=== PATIENT | male | born 1955 | race Caucasian/White ===

== ENCOUNTER → 2017-02-07 | Outpatient (CLI) | payer OTHER ==
[~2017-02-07] MED LIST: AMLO5TAB2 PO; ASPI-650 PO; CARV6.2512 PO; CEFD300C37 PO; DOXY100T PO; FLUT1DIS3 INH; FOLI-17 PO; GUAI200T3 PO; HYDR-3237 PO; LISI-170 PO; MULT1TAB60 PO; NITRO; OMNIPAQUE 350 MG/ML, 75ML BOTTLE ONE; SIMV20TA3 PO; THIA100T6 PO
== END | disposition home or self-care (01) ==
LOC: CVU 07:02
PROVIDERS: ATTEND Internal Medicine Cardiovascular Disease
DX: J44.9 Chronic obstructive pulmonary disease, unspecified (principal); E78.2 Mixed hyperlipidemia; K76.0 Fatty (change of) liver, not elsewhere classified; R91.1 Solitary pulmonary nodule
CPT/HCPCS: 71260; 93880; 93978; Q9967

== ENCOUNTER → 2017-07-05 | Outpatient (CLI) | payer OTHER ==
[~2017-07-05] MED LIST changes: -OMNIPAQUE 350 MG/ML, 75ML BOTTLE ONE
== END | disposition home or self-care (01) ==
LOC: CFH 13:43
PROVIDERS: ATTEND Internal Medicine Critical Care Medicine
DX: R91.1 Solitary pulmonary nodule (principal)
CPT/HCPCS: 71250

== ENCOUNTER 2017-09-23 20:52 | Emergency (ER) | payer OTHER ==
[~2017-09-23] VITALS: Ht 177.8 cm; Wt 96.0 kg
[2017-09-23 21:00] VITALS: BP 127/78
[2017-09-23] MEDS ORDERED: LIDOCAINE 1%, 10ML INFIL ONE (21:30)
[2017-09-23] MEDS ORDERED: DIPH,PERTUSS(ACELL),TET VAC/PF 0.5 ML IM-VACC ONE ×2 (21:30→21:34)
== END 2017-09-23 22:42 | disposition left against medical advice (07) ==
LOC: ED 22:30
DX: S01.01XA Laceration without foreign body of scalp, initial encounter (principal); S06.5X9A Traumatic subdural hemorrhage with loss of consciousness of unspecified duration, initial encounter; I10 Essential (primary) hypertension; Z87.891 Personal history of nicotine dependence; W01.198A Fall on same level from slipping, tripping and stumbling with subsequent striking against other object, initial encounter; Y93.89 Activity, other specified; Y92.098 Other place in other non-institutional residence as the place of occurrence of the external cause; Y99.8 Other external cause status
CPT/HCPCS: 12032; 70450; 90471; 90715; 96372; 99284

== ENCOUNTER 2017-10-02 06:00 | Emergency (ER) | payer OTHER ==
[~2017-10-02] VITALS: Ht 177.8 cm; Wt 100.0 kg
[2017-10-02 06:01] VITALS: BP 117/74
== END 2017-10-02 07:23 | disposition home or self-care (01) ==
LOC: ED 07:19
DX: L02.811 Cutaneous abscess of head [any part, except face] (principal); S01.01XD Laceration without foreign body of scalp, subsequent encounter; I10 Essential (primary) hypertension; Z87.891 Personal history of nicotine dependence; W18.49XD Other slipping, tripping and stumbling without falling, subsequent encounter
CPT/HCPCS: 99283

== ENCOUNTER 2017-10-04 11:57 | Emergency (ER) | payer OTHER ==
[~2017-10-04] VITALS: Ht 177.8 cm; Wt 96.1 kg
[2017-10-04 12:05] VITALS: BP 121/74
== END 2017-10-04 12:48 | disposition home or self-care (01) ==
LOC: ED 12:30
DX: S01.01XD Laceration without foreign body of scalp, subsequent encounter (principal); X58.XXXD Exposure to other specified factors, subsequent encounter
CPT/HCPCS: 99282

== ENCOUNTER 2017-10-06 06:10 | Emergency (ER) | payer OTHER ==
[~2017-10-06] VITALS: Ht 177.8 cm; Wt 94.7 kg
[2017-10-06 06:15] VITALS: BP 121/71
== END 2017-10-06 06:47 | disposition home or self-care (01) ==
LOC: ED 06:28
DX: Z48.01 Encounter for change or removal of surgical wound dressing (principal)
CPT/HCPCS: 99283

== ENCOUNTER → 2018-06-27 | Outpatient (CLI) | payer OTHER ==
[~2018-06-27] MED LIST changes: +AMLO-150 PO; -AMLO5TAB2 PO; -THIA100T6 PO; +THIA100T67 PO
== END | disposition home or self-care (01) ==
LOC: CFH 14:17
PROVIDERS: ATTEND Registered Nurse
DX: M50.10 Cervical disc disorder with radiculopathy, unspecified cervical region (principal); M48.061 Spinal stenosis, lumbar region without neurogenic claudication
CPT/HCPCS: 72052; 72114

== ENCOUNTER 2018-08-24 11:40 | Emergency (ER) | payer OTHER ==
[~2018-08-24] VITALS: Ht 177.8 cm; Wt 92.5 kg
[2018-08-24 12:52] LABS: BASOPHILS # (AUTO) 0.04 x10^3/uL (0-0.1); BASOPHILS % (AUTO) 0 % (0-1); EOSINOPHILS # (AUTO) 0.04 x10^3/uL (0-0.4); EOSINOPHILS % (AUTO) 0 % (1-7); LYMPHOCYTES # (AUTO) 2.11 x10^3/uL (1-3.4); LYMPHOCYTES % (AUTO) 18 % (22-44); MD NO; MEAN CORPUSCULAR HEMOGLOBIN 34.4 pg (27.5-34.5); MEAN CORPUSCULAR HGB CONC 33.3 g/dL (33.2-36.2); MEAN CORPUSCULAR VOLUME 103.2 fL (81-97); MEAN PLATELET VOLUME 7.7 fL (7.4-10.4); MONOCYTES # (AUTO) 0.54 x10^3/uL (0.2-0.8); MONOCYTES % (AUTO) 5 % (2-9); NEUTROPHILS # (AUTO) 8.73 x10^3/uL (1.8-6.8); NEUTROPHILS % (AUTO) 76 % (42-75); PLATELET COUNT 259 x10^3/uL (130-400); RED CELL DISTRIBUTION WIDTH 15.3 % (9.4-14.8)
[2018-08-24 13:02] LABS: ALBUMIN 3.4 g/dL (3.4-5.0); ANION GAP 5 mmol/L (5-15); CALCIUM 8.8 mg/dL (8.5-10.1); CHLORIDE 99 mmol/L (98-107)
[2018-08-24 13:07] LABS: CREATININE 0.57 mg/dL (0.7-1.3)
--- NOTE | 2018-08-24 13:16 | NUR ---
task RN note: pt presents to ED with c/o bilateral pedal edema present for last several days. pt denies chest pain, denies sob, denies leg/foot pain. no erythema noted. bilateral lower leg and pedal edema noted, equal bilateral. pt a&o, resps even and unlabored. bp and spo2 monitors in place. call light in reach. pt educated to provide urine sample, urinal at bedside. edt at bedside to perform EKG. awaiting US as well at this time. pt updated with poc. ba.
[2018-08-24 13:24] LABS: ALBUMIN 3.3 g/dL (3.4-5.0); BILIRUBIN, DIRECT 0.2 mg/dL (0.1-0.2)
[2018-08-24 13:25] VITALS: BP 108/68
[2018-08-24 13:26] LABS: BILIRUBIN,TOTAL 0.6 mg/dL (0.2-1.0); TOTAL PROTEIN 6.8 g/dL (6.4-8.2)
--- NOTE | 2018-08-24 13:26 | NUR ---
report given to primary RN Paz.
--- NOTE | 2018-08-24 13:30 | NUR ---
UOB TO BATHROOM WITHOUT ASSISTANCE. FERRY PILOT AT BEDSIDE PREPARING TO DOING VASCULAR STUDY
[2018-08-24 14:26] LABS: CULTURE INDICATED? YES; MICROSCOPIC INDICATED
--- NOTE | 2018-08-24 14:37 | NUR ---
PT REQUESTED TO SIT IN CHAIR. FRIEND IN ROOM VISITING
[2018-08-24 14:42] LABS: BILIRUBIN,INDIRECT 0.4 mg/dL (0.0-2.0)
== END 2018-08-24 15:16 | disposition home or self-care (01) ==
LOC: ED 12:52
DX: N30.00 Acute cystitis without hematuria (principal); R60.0 Localized edema; I10 Essential (primary) hypertension; I25.2 Old myocardial infarction; Z87.891 Personal history of nicotine dependence
CPT/HCPCS: 36415; 71045; 80048; 80076; 81001; 82040; 83880; 85025; 87086; 93005; 93970; 99284

== ENCOUNTER → 2018-09-03 | Outpatient (CLI) | payer OTHER ==
[~2018-09-03] MED LIST changes: +ASPI-496 PO; +LIDOCAINE 2%, 20ML ONE; +potassium PO
[2018-09-03 09:36] LABS: MEAN CORPUSCULAR HEMOGLOBIN 33.6 pg (27.5-34.5); MEAN CORPUSCULAR HGB CONC 32.5 g/dL (33.2-36.2); MEAN CORPUSCULAR VOLUME 103.5 fL (81-97); PLATELET COUNT 256 x10^3/uL (130-400); RED CELL DISTRIBUTION WIDTH 15.7 % (9.4-14.8)
[2018-09-03 09:44] LABS: INTERNATIONAL NORMALIZED RATIO 1.02 (0.93-1.1); PROTHROMBIN TIME 10.7 Seconds (9.6-11.5)
[2018-09-03 09:45] LABS: ALANINE AMINOTRANSFERASE 29 U/L (12-78); ALBUMIN 3.2 g/dL (3.4-5.0); ANION GAP 8 mmol/L (5-15); CHLORIDE 88 mmol/L (98-107)
[2018-09-03 09:48] LABS: ALKALINE PHOSPHATASE 91 U/L (45-117); BILIRUBIN,TOTAL 0.6 mg/dL (0.2-1.0); CREATININE 0.58 mg/dL (0.7-1.3); TOTAL PROTEIN 6.6 g/dL (6.4-8.2)
[2018-09-03 10:05] LABS: BASOPHILS # (AUTO) 0.12 x10^3/uL (0-0.1); BASOPHILS % (AUTO) 1 % (0-1); EOSINOPHILS # (AUTO) 0.08 x10^3/uL (0-0.4); EOSINOPHILS % (AUTO) 1 % (1-7); LYMPHOCYTES # (AUTO) 2.48 x10^3/uL (1-3.4); LYMPHOCYTES % (AUTO) 19 % (22-44); MD SCAN; MONOCYTES % (AUTO) 7 % (2-9); NEUTROPHILS # (AUTO) 9.62 x10^3/uL (1.8-6.8); NEUTROPHILS % (AUTO) 73 % (42-75)
== END | disposition home or self-care (01) ==
LOC: STAR 08:20
PROVIDERS: ATTEND Neurological Surgery
DX: Z01.818 Encounter for other preprocedural examination (principal); M54.17 Radiculopathy, lumbosacral region
CPT/HCPCS: 36415; 80053; 85025; 85610; 85730; 93005

== ENCOUNTER → 2018-09-04 | Outpatient (CLI) | payer OTHER ==
[~2018-09-04] MED LIST changes: -LIDOCAINE 2%, 20ML ONE; +UMEC1DIS INH
[2018-09-04 12:43] LABS: BASOPHILS # (AUTO) 0.04 x10^3/uL (0-0.1); BASOPHILS % (AUTO) 0 % (0-1); EOSINOPHILS # (AUTO) 0.06 x10^3/uL (0-0.4); EOSINOPHILS % (AUTO) 1 % (1-7); LYMPHOCYTES % (AUTO) 17 % (22-44); MD NO; MEAN CORPUSCULAR HEMOGLOBIN 34.6 pg (27.5-34.5); MEAN CORPUSCULAR HGB CONC 33.2 g/dL (33.2-36.2); MEAN CORPUSCULAR VOLUME 104.4 fL (81-97); MEAN PLATELET VOLUME 6.9 fL (7.4-10.4); MONOCYTES # (AUTO) 0.55 x10^3/uL (0.2-0.8); MONOCYTES % (AUTO) 5 % (2-9); NEUTROPHILS # (AUTO) 9.01 x10^3/uL (1.8-6.8); NEUTROPHILS % (AUTO) 77 % (42-75); PLATELET COUNT 275 x10^3/uL (130-400); RED BLOOD COUNT 3.97 x10^6/uL (4.38-5.82); RED CELL DISTRIBUTION WIDTH 15.6 % (9.4-14.8)
[2018-09-04 12:54] LABS: ANION GAP 10 mmol/L (5-15); CALCIUM 8.7 mg/dL (8.5-10.1); CHLORIDE 91 mmol/L (98-107); CREATININE 0.63 mg/dL (0.7-1.3)
== END | disposition home or self-care (01) ==
LOC: LAB 12:29
PROVIDERS: ATTEND Neurological Surgery
DX: M54.17 Radiculopathy, lumbosacral region (principal)
CPT/HCPCS: 36415; 80048; 85025

== ENCOUNTER 2018-09-09 08:00 | Inpatient (IN) | payer OTHER ==
[2018-09-03 12:49] VITALS: BP 119/78
[~2018-09-09] VITALS: Ht 177.8 cm; Wt 92.4 kg
[~2018-09-09 08:00] MED LIST changes: -UMEC1DIS INH
[2018-09-09] MEDS ORDERED: ACETAMINOPHEN 500 MG TABLET PO ONE (10:00)
[2018-09-09] MEDS ORDERED: GABAPENTIN 300 MG CAPSULE PO ONE (10:00)
[2018-09-09] MEDS ORDERED: LACTATED RINGERS 1,000 ML IV SCH (10:00)
[2018-09-09] MEDS ORDERED: UMEC1DIS INH (10:27)
[2018-09-09 10:57] LABS: ANION GAP 9 mmol/L (5-15); CALCIUM 8.7 mg/dL (8.5-10.1); CHLORIDE 100 mmol/L (98-107); CREATININE 0.43 mg/dL (0.7-1.3)
[2018-09-09] MEDS ORDERED: HALOPERIDOL 5 MG/ML IV PRN (11:30)
[2018-09-09] MEDS ORDERED: DIPHENHYDRAMINE 50 MG/ML, 1ML IVPush PRN (11:30)
[2018-09-09] MEDS ORDERED: METOPROLOL 1 MG/ML, 5ML IV PRN (11:30)
[2018-09-09] MEDS ORDERED: PROMETHAZINE 25 MG/ML, 1ML IV PRN (11:30)
[2018-09-09] MEDS ORDERED: PROCHLORPERAZINE 5 MG/ML, 2ML IV PRN (11:30)
[2018-09-09] MEDS ORDERED: hydrALAzine 20 MG/ML, 1ML IV PRN (11:30)
[2018-09-09] MEDS ORDERED: LABETALOL 5 MG/ML SYRINGE IV PRN (11:30)
[2018-09-09] MEDS ORDERED: OXYcodone 5 MG/5 ML ORAL.SOL UDC PO PRN (11:30)
[2018-09-09] MEDS ORDERED: MEPERIDINE/PF 25MG/0.5ML IVPush PRN (11:30)
[2018-09-09] MEDS ORDERED: BUPIVACAINE/PF-EPI 0.5% 1:200K ONE (13:16)
[2018-09-09] MEDS ORDERED: BACITRACIN 50,000 UNIT ONE (13:16)
[2018-09-09] MEDS ORDERED: THROMBIN 5,000 UNIT VIAL TP ONE (13:16)
[2018-09-09] MEDS ORDERED: MIDAZOLAM 1 MG/ML, 2ML ONE (13:22)
[2018-09-09] MEDS ORDERED: FENTANYL PF 250 MCG/5ML ONE (13:22)
[2018-09-09] MEDS ORDERED: GLYCOPYRROLATE 0.2MG/1ML, 5ML ONE (13:39)
[2018-09-09] MEDS ORDERED: PROPOFOL 10 MG/ML, 20ML ONE (13:39)
[2018-09-09] MEDS ORDERED: DEXAMETHASONE 4 MG/ML, 1ML ONE (13:39)
[2018-09-09] MEDS ORDERED: NEOSTIGMINE 1 MG/ML, 10ML ONE (13:39)
[2018-09-09] MEDS ORDERED: SUCCINYLCHOLINE 20 MG/ML, 10ML ONE (13:39)
[2018-09-09] MEDS ORDERED: ROCURONIUM 10 MG/ML,10ML ONE (13:39)
[2018-09-09] MEDS ORDERED: ONDANSETRON 2MG/ML, 2ML ONE (13:39)
[2018-09-09] MEDS ORDERED: CEFAZOLIN 1,000 MG ONE (13:39)
[2018-09-09] MEDS ORDERED: VANCOMYCIN 1,000 MG ONE (16:11)
[2018-09-09] MEDS ORDERED: FENTANYL PF 100 MCG/2ML ONE (16:52)
[2018-09-09] MEDS ORDERED: OXYcodone 5 MG/5 ML ORAL.SOL UDC ONE (16:52)
[2018-09-09] MEDS ORDERED: HYDROmorphone 2 MG/ML, 1ML ONE (16:52)
[2018-09-09] MEDS ORDERED: ALBUTEROL/IPRATROPIUM 2.5MG/0.5MG, 3 ML ONE (16:55)
[2018-09-09] MEDS: FENTANYL PF 100 MCG/2ML IV PRN ×2 (16:57→17:03)
[2018-09-09] MEDS ORDERED: SENNA/DOCUSATE TABLET PO PRN (17:00)
[2018-09-09] MEDS ORDERED: ALBUTEROL/IPRATROPIUM 2.5MG/0.5MG, 3 ML NPPB PRN (17:00)
[2018-09-09] MEDS ORDERED: LABETALOL 5MG/ML, 20ML IVPush PRN (17:00)
[2018-09-09] MEDS ORDERED: BISACODYL 10 MG SUPP PR PRN (17:00)
[2018-09-09] MEDS ORDERED: CYCLOBENZAPRINE 10 MG TABLET PO PRN (17:00)
[2018-09-09] MEDS ORDERED: HYDROcodone/APAP 5/325 TABLET PO PRN (17:00)
[2018-09-09] MEDS ORDERED: MAGNESIUM HYDROXIDE 8%, 30ML UDC PO PRN (17:00)
[2018-09-09] MEDS ORDERED: OXYcodone/APAP 5/325MG TABLET PO PRN (17:00)
[2018-09-09] MEDS ORDERED: ONDANSETRON 2MG/ML, 2ML IVPush PRN (17:00)
[2018-09-09] MEDS ORDERED: PHARMACY MAY ADJ FOR RENAL FX MC PRN (17:00)
[2018-09-09] MEDS ORDERED: DIPHENHYDRAMINE 50 MG CAPSULE PO PRN (17:00)
[2018-09-09] MEDS: HYDROmorphone 2 MG/ML, 1ML IVPush PRN ×3 (17:13→17:43)
[2018-09-09 18:50] VITALS: BP 125/66
[2018-09-09] MEDS: SIMVASTATIN 20 MG TABLET PO SCH (20:17)
[2018-09-09] MEDS: CARVEDILOL 6.25 MG TABLET PO SCH (20:17)
[2018-09-09] MEDS: SODIUM CHLORIDE FLUSH 10ML SYR IVF SCH (20:18)
[2018-09-09] MEDS: NS + 20MEQ KCL 1,000 ML IV SCH (20:18)
[2018-09-09] MEDS ORDERED: POTASSIUM CHLORIDE 10 MEQ TABLET.ER PO SCH (21:00)
[2018-09-09] MEDS: CEFAZOLIN PMX 1GM/50ML 50 ML IVPB SCH (22:08)
[2018-09-10 00:02] VITALS: BP 120/72
[2018-09-10 04:11] VITALS: BP 103/63
[2018-09-10 05:41] LABS: ANION GAP 6 mmol/L (5-15); BASOPHILS # (AUTO) 0.01 x10^3/uL (0-0.1); BASOPHILS % (AUTO) 0 % (0-1); CALCIUM 7.9 mg/dL (8.5-10.1); CHLORIDE 98 mmol/L (98-107); EOSINOPHILS % (AUTO) 0 % (1-7); LYMPHOCYTES # (AUTO) 1.25 x10^3/uL (1-3.4); LYMPHOCYTES % (AUTO) 9 % (22-44); MD NO; MEAN CORPUSCULAR HGB CONC 33.4 g/dL (33.2-36.2); MEAN CORPUSCULAR VOLUME 104.9 fL (81-97); MEAN PLATELET VOLUME 7.4 fL (7.4-10.4); MONOCYTES # (AUTO) 0.44 x10^3/uL (0.2-0.8); MONOCYTES % (AUTO) 3 % (2-9); NEUTROPHILS # (AUTO) 13.01 x10^3/uL (1.8-6.8); NEUTROPHILS % (AUTO) 88 % (42-75); PLATELET COUNT 263 x10^3/uL (130-400); RED BLOOD COUNT 3.27 x10^6/uL (4.38-5.82); RED CELL DISTRIBUTION WIDTH 15.6 % (9.4-14.8)
[2018-09-10 05:42] LABS: CREATININE 0.41 mg/dL (0.7-1.3)
[2018-09-10] MEDS: CEFAZOLIN PMX 1GM/50ML 50 ML IVPB SCH (06:12)
[2018-09-10] MEDS: NS + 20MEQ KCL 1,000 ML IV SCH ×3 (06:41→20:27)
[2018-09-10] MEDS ORDERED: MORPHINE SULFATE 4 MG/ML, 1ML IV PRN (09:00)
[2018-09-10 09:03] VITALS: BP_SYST 110; BP_SYST 97; BP_DIAS 53; BP_DIAS 62
[2018-09-10] MEDS: CARVEDILOL 6.25 MG TABLET PO SCH ×2 (09:07→20:24)
[2018-09-10] MEDS: LISINOPRIL 20 MG TABLET PO SCH (09:07)
[2018-09-10] MEDS: TEMPLATE NON-FORMULARY MED. (Umeclidinium Brm/Vilanterol Tr (Anoro Ellipta 62.5-25 Mcg Inh INH SCH (09:08)
[2018-09-10] MEDS: SODIUM CHLORIDE FLUSH 10ML SYR IVF SCH ×2 (09:08→20:24)
[2018-09-10] MEDS: NICOTINE 21 MG/24 HR PATCH.TD24 HOMETD SCH (09:11)
[2018-09-10] MEDS: POTASSIUM CHLORIDE 10 MEQ TABLET.ER HOMEMEDPO SCH ×2 (09:11→20:24)
[2018-09-10] MEDS ORDERED: IPRATROPIUM NASAL 0.03%, 30ML HOMEMISC PRN (10:30)
[2018-09-10] MEDS: FLUOXETINE HCL 20 MG CAPSULE PO SCH (10:49)
[2018-09-10] MEDS: HYDROcodone/APAP 10/325 MG TABLET PO PRN ×2 (10:49→19:13)
[2018-09-10 13:11] VITALS: BP 110/65
[2018-09-10] MEDS ORDERED: MONT10TA6 PO (18:06)
[2018-09-10] MEDS ORDERED: FLUO20CA19 PO (18:06)
[2018-09-10 18:30] VITALS: BP 101/59
[2018-09-10] MEDS: SIMVASTATIN 20 MG TABLET PO SCH (20:24)
[2018-09-10] MEDS ORDERED: MONTELUKAST 10 MG TABLET PO SCH (21:00)
[2018-09-11] MEDS: HYDROcodone/APAP 10/325 MG TABLET PO PRN ×2 (01:27→09:05)
[2018-09-11 01:38] VITALS: BP 113/64
[2018-09-11 05:39] LABS: BASOPHILS # (AUTO) 0.14 x10^3/uL (0-0.1); BASOPHILS % (AUTO) 1 % (0-1); EOSINOPHILS # (AUTO) 0.01 x10^3/uL (0-0.4); EOSINOPHILS % (AUTO) 0 % (1-7); LYMPHOCYTES % (AUTO) 14 % (22-44); MD NO; MEAN CORPUSCULAR HEMOGLOBIN 34.9 pg (27.5-34.5); MEAN CORPUSCULAR HGB CONC 33.1 g/dL (33.2-36.2); MEAN CORPUSCULAR VOLUME 105.2 fL (81-97); MEAN PLATELET VOLUME 7.4 fL (7.4-10.4); MONOCYTES # (AUTO) 0.86 x10^3/uL (0.2-0.8); MONOCYTES % (AUTO) 7 % (2-9); NEUTROPHILS # (AUTO) 10.33 x10^3/uL (1.8-6.8); NEUTROPHILS % (AUTO) 78 % (42-75); PLATELET COUNT 254 x10^3/uL (130-400); RED BLOOD COUNT 3.18 x10^6/uL (4.38-5.82); RED CELL DISTRIBUTION WIDTH 15.9 % (9.4-14.8)
[2018-09-11 05:40] VITALS: BP 125/43
[2018-09-11 05:54] LABS: ANION GAP 6 mmol/L (5-15); CALCIUM 7.8 mg/dL (8.5-10.1); CHLORIDE 97 mmol/L (98-107); CREATININE 0.38 mg/dL (0.7-1.3)
[2018-09-11] MEDS: NS + 20MEQ KCL 1,000 ML IV SCH (08:52)
[2018-09-11] MEDS: NICOTINE 21 MG/24 HR PATCH.TD24 HOMETD SCH (09:03)
[2018-09-11] MEDS: FLUOXETINE HCL 20 MG CAPSULE PO SCH (09:05)
[2018-09-11] MEDS: POTASSIUM CHLORIDE 10 MEQ TABLET.ER HOMEMEDPO SCH ×2 (09:05→09:12)
[2018-09-11] MEDS: TEMPLATE NON-FORMULARY MED. (Umeclidinium Brm/Vilanterol Tr (Anoro Ellipta 62.5-25 Mcg Inh INH SCH (09:06)
[2018-09-11] MEDS: SODIUM CHLORIDE FLUSH 10ML SYR IVF SCH (09:06)
[2018-09-11 09:07] VITALS: BP 125/77
[2018-09-11] MEDS: CARVEDILOL 6.25 MG TABLET PO SCH (09:07)
[2018-09-11] MEDS: LISINOPRIL 20 MG TABLET PO SCH (09:07)
[2018-09-11 12:44] VITALS: BP 98/62
[2018-09-11 15:07] VITALS: BP 124/79
== END 2018-09-11 15:50 | disposition home or self-care (01) | DRG 454 ==
LOC: EDSTATUS 08:30 → ORIP 09:48 → 4NOR 18:40 → DCLOUNGE 09-11 15:40
PROVIDERS: ADMIT Neurological Surgery; ATTEND Neurological Surgery
PROC: 0SG3071 Fusion of Lumbosacral Joint with Autologous Tissue Substitute, Posterior Approach, Posterior Column, Open Approach (ICD-10-PCS; 2018-09-09)
PROC: 0SB40ZZ Excision of Lumbosacral Disc, Open Approach (ICD-10-PCS; 2018-09-09)
PROC: 00NY0ZZ Release Lumbar Spinal Cord, Open Approach (ICD-10-PCS; 2018-09-09)
PROC: 01NB0ZZ Release Lumbar Nerve, Open Approach (ICD-10-PCS; 2018-09-09)
PROC: 01NR0ZZ Release Sacral Nerve, Open Approach (ICD-10-PCS; 2018-09-09)
PROC: 0SG30AJ Fusion of Lumbosacral Joint with Interbody Fusion Device, Posterior Approach, Anterior Column, Open Approach (ICD-10-PCS; principal; 2018-09-09 13:00)
DX: M48.07 Spinal stenosis, lumbosacral region (principal); E87.1 Hypo-osmolality and hyponatremia; J44.9 Chronic obstructive pulmonary disease, unspecified; E78.00 Pure hypercholesterolemia, unspecified; I10 Essential (primary) hypertension; M47.27 Other spondylosis with radiculopathy, lumbosacral region; M47.26 Other spondylosis with radiculopathy, lumbar region; M43.16 Spondylolisthesis, lumbar region; M43.17 Spondylolisthesis, lumbosacral region; I25.10 Atherosclerotic heart disease of native coronary artery without angina pectoris; Z95.5 Presence of coronary angioplasty implant and graft; I25.2 Old myocardial infarction; Z79.01 Long term (current) use of anticoagulants; Z82.49 Family history of ischemic heart disease and other diseases of the circulatory system
CPT/HCPCS: 36415; 72100; J7620; 80048; 85025; 86850; 86900; 94640; C1713; C1776; G0378; J0690; J1100; J1170; J2250; J2270; J2405; J2704; J2710; J3010; J3370; J3480; C1762; J0330; J7120

== ENCOUNTER → 2019-09-16 | Outpatient (CLI) | payer OTHER ==
[~2019-09-16] MED LIST changes: +FLUO20CA19 PO; -GUAI200T3 PO; +GUAI200T37 PO; +MONT10TA6 PO; +SIMV20TA19 PO; -SIMV20TA3 PO; +UMEC1DIS INH
== END | disposition home or self-care (01) ==
LOC: CVU 14:20
PROVIDERS: ATTEND Internal Medicine Cardiovascular Disease
DX: I36.1 Nonrheumatic tricuspid (valve) insufficiency (principal); I25.10 Atherosclerotic heart disease of native coronary artery without angina pectoris; I10 Essential (primary) hypertension; J44.9 Chronic obstructive pulmonary disease, unspecified; I25.2 Old myocardial infarction; Z85.46 Personal history of malignant neoplasm of prostate; Z87.891 Personal history of nicotine dependence
CPT/HCPCS: C8929; Q9957

== ENCOUNTER 2020-02-22 11:36 | Inpatient (IN) | payer OTHER ==
[~2020-02-22] VITALS: Ht 177.8 cm; Wt 82.1 kg
[~2020-02-22 11:36] MED LIST changes: -CARV6.2512 PO; +MULT-449 PO; -MULT1TAB60 PO
[2020-02-22] MEDS ORDERED: SODIUM CHLORIDE FLUSH 10ML SYR IVF ONE (12:00)
--- NOTE | 2020-02-22 12:01 | NUR ---
PT CAME IN BY AMBULANCE C./O WEAKNESS THAT HAS PERSISTED FOR APPROX A MONTH. PT ALSO STATES HE IS EXPERIENCING DIZZINESS THAT IS PRESENT WITHOUT MOVEMENT. PT DENIES N/V, CHEST PAIN, OR HEADACHE. PTS DAUGHTER ENCOURAGED HIM TO GET CHECKED OUT. IV ESTABLISHED BY EMS, 20 GA RIGHT HAND.
[2020-02-22 12:37] LABS: BASOPHILS % (AUTO) 1 % (0-1); EOSINOPHILS % (AUTO) 1 % (1-7); LYMPHOCYTES % (AUTO) 13 % (22-44); MEAN CORPUSCULAR HEMOGLOBIN 36.6 pg (27.5-34.5); MEAN CORPUSCULAR HGB CONC 34.5 g/dL (33.2-36.2); MEAN PLATELET VOLUME 7.8 fL (7.4-10.4); MONOCYTES % (AUTO) 8 % (2-9); NEUTROPHILS % (AUTO) 78 % (42-75); PLATELET COUNT 220 x10^3/uL (130-400); RED BLOOD COUNT 2.27 x10^6/uL (4.38-5.82); RED CELL DISTRIBUTION WIDTH 14.3 % (9.4-14.8)
[2020-02-22 12:40] LABS: MD NO
[2020-02-22 12:47] LABS: ALANINE AMINOTRANSFERASE 18 U/L (12-78); ALBUMIN 2.2 g/dL (3.4-5.0); ANION GAP 8 mmol/L (5-15); CALCIUM 7.5 mg/dL (8.5-10.1); CHLORIDE 89 mmol/L (98-107)
[2020-02-22 12:52] LABS: ALKALINE PHOSPHATASE 213 U/L (45-117); BILIRUBIN,TOTAL 0.9 mg/dL (0.2-1.0); TOTAL PROTEIN 5.1 g/dL (6.4-8.2); TROPONIN I < 0.015 ng/mL (0.000-0.045)
--- NOTE | 2020-02-22 14:11 | NUR ---
PT LYING ON RIGHT SIDE IN POSITION OF COMFORT. ATTEMPTED TO GIVE URINE SAMPLE BUT UNABLE TO. AWAITING DOXY FROM PHARMACY. PROVIDED SIPS OF APPLE JUICE. DAUGHTER AT BEDSIDE
[2020-02-22] MEDS ORDERED: TRELEGY (14:16)
[2020-02-22] MEDS ORDERED: ONDANSETRON 2MG/ML, 2ML IVPush PRN (15:00)
[2020-02-22] MEDS ORDERED: ACETAMINOPHEN 325 MG TABLET PO PRN (15:00)
[2020-02-22] MEDS ORDERED: hydrALAzine 20 MG/ML, 1ML IVPush PRN (15:00)
[2020-02-22] MEDS ORDERED: CEFTRIAXONE PMX 1GM/50ML 50 ML IV ONE (15:00)
[2020-02-22] MEDS ORDERED: DOXYCYCLINE 100 MG in DEXTROSE 5% 250 ML IV SCH (15:00)
[2020-02-22] MEDS: CEFTRIAXONE PMX 2GM/50ML 50 ML IVPB SCH (15:00)
[2020-02-22] MEDS ORDERED: DOCUSATE 100 MG CAPSULE PO PRN (15:00)
--- NOTE | 2020-02-22 15:02 | NUR ---
[facility] [phone]
[2020-02-22] MEDS ORDERED: CEFTRIAXONE PMX 1GM/50ML 50 ML ONE (15:05)
[2020-02-22 15:16] LABS: HCT (SEDRATE) 24.1 % (39.2-51.8)
[2020-02-22 15:18] LABS: INTERNATIONAL NORMALIZED RATIO 1.28 (0.93-1.1); PROTHROMBIN TIME 13.5 Seconds (9.6-11.5)
--- NOTE | 2020-02-22 15:19 | NUR ---
task RN note: MD Yoder called on behalf of primary RN MD Krisitn notified sodium level is 126, pt has not received any saline solution in ED to correct. declined to place IV fluid orders as she is concerned with pt's elevated BNP level. no orders received. HEATH Foster notified.
[2020-02-22] MEDS ORDERED: AMLO-211 PO (15:42)
[2020-02-22] MEDS ORDERED: CARV3.122 PO (15:42)
[2020-02-22] MEDS ORDERED: ASPI-515 PO (15:42)
[2020-02-22] MEDS ORDERED: vitamin d3 (15:44)
[2020-02-22] MEDS ORDERED: SODIUM CHLORIDE 0.9% 500 ML IV STA (16:19)
--- NOTE | 2020-02-22 16:20 | NUR ---
DR PHOENIX MADE AWARE OF 85 SYSTOLIC BP AND ORDER RECEIVED FOR 500 ML NS IV BOLUS. ADDITIONALLY MADE AWARE THAT VIBRAMYCIN THAT HAD BEEN ORDERED BY ER MD DID NOT GET STARTED BEFORE IT WAS CANCELLED OFF JUN. DR PHOENIX STATES SHE DOES NOT WANT THE PT TO RECEIVE THAT MEDICINE BUT ROCEPHINE AND AZITHRO INSTEAD.
[2020-02-22] MEDS ORDERED: AZITHROMYCIN 250 MG TABLET ONE (16:30)
[2020-02-22 16:34] LABS: MICROSCOPIC INDICATED
--- NOTE | 2020-02-22 17:18 | NUR ---
PT SITTING ON THE SIDE OF THE BED EATING DINNER. NO COMPLAINTS OF DIZZINESS AT THIS TIMEM, JUST STUFFY NOSE.
[2020-02-22] MEDS ORDERED: SODIUM CHLORIDE 0.9% 500 ML IV ONE (17:30)
--- NOTE | 2020-02-22 18:20 | NUR ---
RT PLACED PT ON HUMIDIFIED OXYGEN. ADDITIONALLY PT PLACED ON HOSPITAL BED. SPOKE WITH SUPPLY CHAIN ASSOCIATE JULIO CESAR ABOUT 85 SYSTOLIC BP AND ORDER RECEIVED FOR 250 ML BOLUS AND TO MONITOR.
--- NOTE | 2020-02-22 18:53 | NUR ---
REPORT TO KENNY JOE. AWARE OF RECENT IV BOLUS 250 ML WITH DISCUSSION WITH MODE SALAS THAT LONG ASYMPTOMATIC WITH BP AND MAP OF 60, TO CONTINUE TO MONITOR WITHOUT ADDITIONAL FLUIDS. 89/58 BP AT THIS TIME.
[2020-02-22 19:44] VITALS: BP_SYST 65; BP_SYST 80; BP_SYST 83; BP_DIAS 45; BP_DIAS 47; BP_DIAS 56
[2020-02-22] MEDS: CARVEDILOL 6.25 MG TABLET PO SCH (20:08)
[2020-02-22] MEDS ORDERED: SODIUM CHLORIDE 0.9%, 500ML IVBOLUS ONE (20:30)
[2020-02-22] MEDS: MONTELUKAST 10 MG TABLET PO SCH (21:05)
[2020-02-22] MEDS: SIMVASTATIN 20 MG TABLET PO SCH (21:06)
[2020-02-22] MEDS: FAMOTIDINE 20 MG TABLET PO SCH (21:06)
[2020-02-22 21:29] VITALS: BP 91/52
[2020-02-22 23:30] VITALS: BP 90/56
[2020-02-22] MEDS ORDERED: CARV6.2512 PO (23:32)
[2020-02-23 01:24] LABS: BASOPHILS % (AUTO) 1 % (0-1); EOSINOPHILS % (AUTO) 1 % (1-7); LYMPHOCYTES % (AUTO) 17 % (22-44); MEAN CORPUSCULAR HEMOGLOBIN 37.2 pg (27.5-34.5); MEAN CORPUSCULAR HGB CONC 34.9 g/dL (33.2-36.2); MEAN PLATELET VOLUME 6.9 fL (7.4-10.4); MONOCYTES % (AUTO) 9 % (2-9); NEUTROPHILS % (AUTO) 73 % (42-75); PLATELET COUNT 180 x10^3/uL (130-400); RED BLOOD COUNT 1.98 x10^6/uL (4.38-5.82); RED CELL DISTRIBUTION WIDTH 14.4 % (9.4-14.8)
[2020-02-23 01:28] LABS: MD NO
[2020-02-23 01:34] LABS: ALANINE AMINOTRANSFERASE 15 U/L (12-78); ALBUMIN 1.9 g/dL (3.4-5.0); ANION GAP 4 mmol/L (5-15); CHLORIDE 92 mmol/L (98-107); CREATININE 0.21 mg/dL (0.7-1.3)
[2020-02-23 01:37] LABS: ALKALINE PHOSPHATASE 184 U/L (45-117); BILIRUBIN,TOTAL 0.7 mg/dL (0.2-1.0); CHOL/HDL RATIO 1.8; CHOLESTEROL, TOTAL 64 mg/dL (140-239); HDL CHOL % 55 % (26-37); HDL CHOLESTEROL (DIRECT) 35 mg/dL (40-60); LDL CHOLESTEROL,CALCULATED 18 mg/dL (54-169); LDL/HDL RATIO 0.5 (0.5-3.0); TOTAL PROTEIN 4.5 g/dL (6.4-8.2); TRIGLYCERIDES 53 mg/dL (50-200); VLDL CHOLESTEROL 11 mg/dL (0-25)
[2020-02-23] MEDS ORDERED: MAGNESIUM SULFATE PMX 2GM/50ML 50 ML IV ONE (02:00)
[2020-02-23] MEDS ORDERED: POTASSIUM CHLORIDE 20 MEQ TAB.ER.PRT PO ONE ×2 (02:00→13:00)
[2020-02-23] MEDS: CARVEDILOL 6.25 MG TABLET PO SCH (03:08)
[2020-02-23 05:13] VITALS: BP 78/41
[2020-02-23] MEDS ORDERED: MIDODRINE 5 MG TABLET PO ONE (05:30)
[2020-02-23 06:56] VITALS: BP 92/56
[2020-02-23 07:24] LABS: MICROSCOPIC INDICATED
[2020-02-23] MEDS ORDERED: SODIUM CHLORIDE 0.9% 1,000 ML IV SCH (07:30)
[2020-02-23] MEDS ORDERED: LISINOPRIL 20 MG TABLET PO SCH (09:00)
[2020-02-23] MEDS: AZITHROMYCIN 500 MG TABLET PO SCH (09:33)
[2020-02-23] MEDS: FLUOXETINE HCL 20 MG CAPSULE PO SCH (09:33)
[2020-02-23] MEDS: FAMOTIDINE 20 MG TABLET PO SCH ×2 (09:33→20:43)
[2020-02-23] MEDS ORDERED: OMNIPAQUE 350 MG/ML, 75ML BOTTLE ONE (11:45)
[2020-02-23 12:22] VITALS: BP_SYST 74; BP_SYST 89; BP_DIAS 37; BP_DIAS 55
[2020-02-23] MEDS ORDERED: MIDODRINE 5 MG TABLET PO SCH (13:00)
[2020-02-23 13:56] VITALS: BP 82/45
[2020-02-23] MEDS ORDERED: LORazepam 2 MG/ML, 1ML IV PRN ×5 (17:00)
[2020-02-23] MEDS: CEFTRIAXONE PMX 2GM/50ML 50 ML IVPB SCH (17:26)
[2020-02-23 19:09] VITALS: BP 86/48
[2020-02-23] MEDS: SIMVASTATIN 20 MG TABLET PO SCH (20:42)
[2020-02-23] MEDS: MIDODRINE 5 MG TABLET PO SCH (20:43)
[2020-02-23] MEDS: MONTELUKAST 10 MG TABLET PO SCH (20:43)
[2020-02-24 01:43] VITALS: BP 88/52
[2020-02-24] MEDS: ASPIRIN 81 MG TABLET EC PO SCH (06:27)
[2020-02-24] MEDS ORDERED: SODIUM CHLORIDE NASAL SPRAY 45ML BOTTLE NAS PRN (07:30)
[2020-02-24 07:39] VITALS: BP 86/55
[2020-02-24] MEDS ORDERED: FAMOTIDINE 40 MG TABLET ONE ×3 (08:30→22:07)
[2020-02-24 08:33] LABS: BASOPHILS % (AUTO) 1 % (0-1); EOSINOPHILS % (AUTO) 1 % (1-7); LYMPHOCYTES % (AUTO) 10 % (22-44); MEAN CORPUSCULAR HEMOGLOBIN 37.2 pg (27.5-34.5); MEAN CORPUSCULAR HGB CONC 34.5 g/dL (33.2-36.2); MEAN PLATELET VOLUME 7.5 fL (7.4-10.4); MONOCYTES % (AUTO) 10 % (2-9); NEUTROPHILS % (AUTO) 78 % (42-75); PLATELET COUNT 221 x10^3/uL (130-400); RED BLOOD COUNT 2.18 x10^6/uL (4.38-5.82); RED CELL DISTRIBUTION WIDTH 14.5 % (9.4-14.8)
[2020-02-24 08:38] LABS: MD NO
[2020-02-24 08:41] LABS: ANION GAP 5 mmol/L (5-15); CALCIUM 7.6 mg/dL (8.5-10.1); CHLORIDE 93 mmol/L (98-107); CREATININE 0.21 mg/dL (0.7-1.3)
[2020-02-24] MEDS: FLUOXETINE HCL 20 MG CAPSULE PO SCH (08:41)
[2020-02-24] MEDS: MIDODRINE 5 MG TABLET PO SCH ×3 (08:42→22:18)
[2020-02-24] MEDS: FAMOTIDINE 20 MG TABLET PO SCH ×2 (08:42→21:00)
[2020-02-24] MEDS: AZITHROMYCIN 500 MG TABLET PO SCH (08:42)
[2020-02-24] MEDS: FLUTICASONE NASAL SPRAY 16GM NAS SCH ×2 (08:43→22:17)
[2020-02-24 14:51] VITALS: BP 91/54
[2020-02-24] MEDS: FUROSEMIDE 40 MG/4 ML IV SCH (16:43)
[2020-02-24] MEDS: PIPERACILLIN/TAZO/PMX 4.5GM 100 ML IV SCH ×3 (16:44→22:16)
[2020-02-24 20:17] VITALS: BP 93/60
[2020-02-24] MEDS: SIMVASTATIN 20 MG TABLET PO SCH (22:17)
[2020-02-24] MEDS: MONTELUKAST 10 MG TABLET PO SCH (22:17)
[2020-02-25 01:07] VITALS: BP 96/56
[2020-02-25] MEDS: PIPERACILLIN/TAZO/PMX 4.5GM 100 ML IV SCH ×4 (05:25→23:18)
[2020-02-25] MEDS: ASPIRIN 81 MG TABLET EC PO SCH (06:24)
[2020-02-25] MEDS ORDERED: FAMOTIDINE 40 MG TABLET ONE ×2 (08:43→21:07)
[2020-02-25] MEDS: FAMOTIDINE 20 MG TABLET PO SCH ×2 (09:00→21:00)
[2020-02-25 09:15] VITALS: BP 94/61
[2020-02-25] MEDS: FLUTICASONE NASAL SPRAY 16GM NAS SCH ×2 (10:55→21:19)
[2020-02-25] MEDS: FUROSEMIDE 40 MG/4 ML IV SCH ×2 (10:55→17:48)
[2020-02-25] MEDS: MIDODRINE 5 MG TABLET PO SCH ×3 (10:56→21:20)
[2020-02-25] MEDS: FLUOXETINE HCL 20 MG CAPSULE PO SCH (11:01)
[2020-02-25 13:49] VITALS: BP 95/42
[2020-02-25 19:25] VITALS: BP 85/51
[2020-02-25] MEDS: MONTELUKAST 10 MG TABLET PO SCH (21:19)
[2020-02-25] MEDS: SIMVASTATIN 20 MG TABLET PO SCH (21:20)
[2020-02-26 02:28] VITALS: BP 88/52
[2020-02-26] MEDS: ASPIRIN 81 MG TABLET EC PO SCH (05:05)
[2020-02-26] MEDS: PIPERACILLIN/TAZO/PMX 4.5GM 100 ML IV SCH ×2 (05:05→10:56)
[2020-02-26 06:49] VITALS: BP 84/46
[2020-02-26] MEDS: FUROSEMIDE 40 MG/4 ML IV SCH (07:30)
[2020-02-26] MEDS ORDERED: FAMOTIDINE 40 MG TABLET ONE (08:41)
[2020-02-26] MEDS: MIDODRINE 5 MG TABLET PO SCH ×2 (08:44→15:35)
[2020-02-26] MEDS: FAMOTIDINE 20 MG TABLET PO SCH (08:44)
[2020-02-26] MEDS: FLUOXETINE HCL 20 MG CAPSULE PO SCH (08:44)
[2020-02-26] MEDS: FLUTICASONE NASAL SPRAY 16GM NAS SCH (08:44)
[2020-02-26 09:36] LABS: ANION GAP 8 mmol/L (5-15); CALCIUM 7.6 mg/dL (8.5-10.1); CHLORIDE 89 mmol/L (98-107); CREATININE 0.49 mg/dL (0.7-1.3)
[2020-02-26 09:37] LABS: BASOPHILS % (AUTO) 1 % (0-1); EOSINOPHILS % (AUTO) 2 % (1-7); LYMPHOCYTES % (AUTO) 10 % (22-44); MEAN CORPUSCULAR HEMOGLOBIN 36.8 pg (27.5-34.5); MEAN CORPUSCULAR HGB CONC 34.2 g/dL (33.2-36.2); MEAN PLATELET VOLUME 7.4 fL (7.4-10.4); MONOCYTES % (AUTO) 8 % (2-9); NEUTROPHILS % (AUTO) 80 % (42-75); PLATELET COUNT 259 x10^3/uL (130-400); RED BLOOD COUNT 2.45 x10^6/uL (4.38-5.82); RED CELL DISTRIBUTION WIDTH 14.4 % (9.4-14.8)
[2020-02-26 10:03] LABS: MD SCAN
[2020-02-26] MEDS ORDERED: MAGNESIUM SULFATE 1 GM in SODIUM CHLORIDE 0.9% 50 ML IV ONE (12:00)
[2020-02-26 12:46] VITALS: BP 86/49
[2020-02-26] MEDS ORDERED: MAGNESIUM SULFATE/D5W 100 ML IVPB ONE (13:00)
[2020-02-26] MEDS ORDERED: MIDO10TA PO (15:33)
[2020-02-26] MEDS ORDERED: FURO-92 PO (15:33)
== END 2020-02-26 16:49 | disposition hospice, inpatient (51) | DRG 291 ==
LOC: ED 13:11 → MERGE 13:11 → EDIP 14:37 → 4WST 19:30 → 5SO 02-23 12:09
PROVIDERS: ADMIT Internal Medicine; ATTEND Hospitalist
DX: I11.0 Hypertensive heart disease with heart failure (principal); J18.9 Pneumonia, unspecified organism; J96.01 Acute respiratory failure with hypoxia; E43 Unspecified severe protein-calorie malnutrition; I50.31 Acute diastolic (congestive) heart failure; E87.1 Hypo-osmolality and hyponatremia; J44.0 Chronic obstructive pulmonary disease with (acute) lower respiratory infection; J98.11 Atelectasis; M48.54XA Collapsed vertebra, not elsewhere classified, thoracic region, initial encounter for fracture; D53.9 Nutritional anemia, unspecified; E87.6 Hypokalemia; F10.10 Alcohol abuse, uncomplicated; I36.1 Nonrheumatic tricuspid (valve) insufficiency; I25.10 Atherosclerotic heart disease of native coronary artery without angina pectoris; I27.20 Pulmonary hypertension, unspecified; I25.2 Old myocardial infarction; Z79.82 Long term (current) use of aspirin; Z79.899 Other long term (current) drug therapy; Z85.46 Personal history of malignant neoplasm of prostate; Z91.11 Patient's noncompliance with dietary regimen; Z92.3 Personal history of irradiation; Z68.26 Body mass index [BMI] 26.0-26.9, adult
CPT/HCPCS: 36415; 70450; 71045; 71275; 80048; 80053; 80061; 81001; 83036; 83605; 83735; 83880; 84100; 84145; 84443; 84484; 85025; 85610; 85651; 87040; 87086; 93005; 93306; G0378; J0696; J1940; J2543; J7060; Q9967; J3475; J7030; J7040